=== PATIENT | male | born 1955 | race Two or more races ===

== ENCOUNTER 2021-04-10 03:32 | Inpatient (IN) | payer OTHER, MEDICAID ==
[~2021-04-10] VITALS: Ht 188 cm; Wt 91.6 kg
[2021-04-10] MEDS ORDERED: KETOROLAC TROMETH 30 MG/ML 1ML VIAL IV ONE (04:00)
[2021-04-10] MEDS ORDERED: fentaNYL CITRATE 100 MCG/2 ML VL IV ONE (04:00)
[2021-04-10 05:55] LABS: Basophils # (auto) 0 10 ^3/uL (0-0.2); Eosinophils # (auto) 0 10 ^3/uL (0-0.8); Eosinophils % (auto) 0.1 % (0.0-7.0); Hematocrit 43.7 % (41.0-53.0); Monocytes # (auto) 0.7 10 ^3/uL (0-1.3)
[2021-04-10 05:58] LABS: Basophils % (auto) 0.2 % (0.0-2.0); Hemoglobin 15.3 g/dL (13.5-17.5); Lymphocytes % (auto) 7.6 % (10.0-50.0); Mean Corpuscular Hemoglobin 35.8 pg (28.0-32.0); Mean Corpuscular Volume 102.2 fL (80.0-100.0); Monocytes % (auto) 5.2 % (0.0-12.0); Neutrophils # (auto) 11.8 10 ^3/uL (1.6-8.6); Neutrophils % (auto) 86.9 % (37.0-80.0); Nucleated Red Blood Cells % 0.2 %; Red Blood Cells 4.27 10^6/uL (4.5-5.90); Red Cell Distribution Width 13.4 % (11.8-14.3); White Blood Cell 13.6 10^3/uL (4.4-10.8)
[2021-04-10 06:13] LABS: Albumin 3.4 g/dL (3.4-5.0); BUN/Creatinine Ratio 16.2; Calcium 9.1 mg/dL (8.5-10.1)
[2021-04-10 06:22] LABS: Bilirubin, Total 1.1 mg/dL (0.2-1.0); Total Protein 7.3 g/dL (6.4-8.2)
[2021-04-10] MEDS ORDERED: ONDANSETRON HCL 4 MG/2 ML VIAL IV ONE (06:45)
[2021-04-10] MEDS ORDERED: ACETAMINOPHEN 325 MG TAB PO PRN ×2 (07:15)
[2021-04-10] MEDS ORDERED: TEMAZEPAM 15 MG CAP PO PRN (07:15)
[2021-04-10] MEDS ORDERED: MORPHINE SULFATE INJECTION 2 MG/ML SYRG IV PRN (07:15)
[2021-04-10] MEDS ORDERED: NITROGLYCERIN 0.4 MG SL TAB SL PRN (07:15)
[2021-04-10] MEDS: POTASSIUM CHL 20MEQ/100ML 100 ML IV SCH ×2 (08:03→10:32)
[2021-04-10] MEDS: SOD CHL 0.45% 1,000 ML IV SCH (08:03)
[2021-04-10] MEDS: cefTRIAXone 1GM/50ML D5W 50 ML IV SCH (09:30)
[2021-04-10] MEDS: FAMOTIDINE (10MG/ML) 2ML VL IV SCH (09:44)
[2021-04-10] MEDS: ONDANSETRON HCL 4 MG/2 ML VIAL IV PRN (09:45)
[2021-04-10] MEDS: MORPHINE SULFATE 4 MG/ML SYR/VIAL IV PRN ×3 (09:45→21:15)
[2021-04-10] MEDS: HEPARIN SODIUM (PORCINE) 5000 UNITS/ML 1ML VIAL SC SCH ×2 (10:07→21:17)
[2021-04-10] MEDS ORDERED: ATO40T PO (11:56)
[2021-04-10] MEDS ORDERED: ASPI-543 PO (11:56)
[2021-04-10 13:00] VITALS: BP 151/89
[2021-04-10] MEDS: metroNIDAZOLE 500MG/100ML 100 ML IV SCH ×2 (13:38→21:15)
[2021-04-10 16:35] VITALS: BP 136/85
[2021-04-10] MEDS ORDERED: CLINIMIX PER PHARMACY 0 ML IV SCH (16:45)
[2021-04-10] MEDS: FOLIC ACID 1 MG TAB PO SCH (17:14)
[2021-04-10] MEDS: THIAMINE HCL 100 MG TAB PO SCH (17:14)
[2021-04-10] MEDS ORDERED: AMINO ACID INFUSION IN D10W 1,000 ML IV ONE (20:00)
[2021-04-10 22:00] VITALS: BP 158/90
[2021-04-10] MEDS: InsuLIN REG 1unit/0.01ml Soln (100units/ml) SC SCH (23:39)
[2021-04-10] MEDS: ACCU-CHEK COMFORT CURVE STRIP VI SCH (23:40)
[2021-04-11] MEDS ORDERED: DEXTROSE (50%) 50ML SYRG IV SCH
[2021-04-11] MEDS: SOD CHL 0.45% 1,000 ML IV SCH ×2 (03:50→09:41)
[2021-04-11] MEDS: MORPHINE SULFATE 4 MG/ML SYR/VIAL IV PRN ×3 (04:25→21:10)
[2021-04-11] MEDS: ONDANSETRON HCL 4 MG/2 ML VIAL IV PRN (04:26)
[2021-04-11 05:00] VITALS: BP 120/64
[2021-04-11] MEDS: InsuLIN REG 1unit/0.01ml Soln (100units/ml) SC SCH ×3 (05:44→18:00)
[2021-04-11] MEDS: ACCU-CHEK COMFORT CURVE STRIP VI SCH ×3 (05:44→18:11)
[2021-04-11] MEDS: metroNIDAZOLE 500MG/100ML 100 ML IV SCH ×3 (05:44→21:10)
[2021-04-11 05:53] LABS: Basophils # (auto) 0 10 ^3/uL (0-0.2); Basophils % (auto) 0.3 % (0.0-2.0); Eosinophils # (auto) 0.1 10 ^3/uL (0-0.8); Lymphocytes # (auto) 1.4 10 ^3/uL (0.4-5.4); Monocytes # (auto) 0.9 10 ^3/uL (0-1.3); Neutrophils # (auto) 8.1 10 ^3/uL (1.6-8.6); White Blood Cell 10.5 10^3/uL (4.4-10.8)
[2021-04-11 05:55] LABS: Eosinophils % (auto) 0.9 % (0.0-7.0); Hematocrit 40.4 % (41.0-53.0); Hemoglobin 14.8 g/dL (13.5-17.5); Mean Corpuscular Hemoglobin 36.6 pg (28.0-32.0); Mean Corpuscular Volume 99.8 fL (80.0-100.0); Monocytes % (auto) 8.2 % (0.0-12.0); Neutrophils % (auto) 77.6 % (37.0-80.0); Red Blood Cells 4.04 10^6/uL (4.5-5.90); Red Cell Distribution Width 13.3 % (11.8-14.3)
[2021-04-11 05:57] LABS: Mean Corpuscular Hgb Conc. 36.7 g/dL (32.0-36.0)
[2021-04-11 06:13] LABS: Potassium 3.1 mmol/L (3.5-5.1)
[2021-04-11 06:30] LABS: Albumin 3.2 g/dL (3.4-5.0); Bilirubin, Total 1.6 mg/dL (0.2-1.0); Calcium 7.8 mg/dL (8.5-10.1); Magnesium 1.7 mg/dL (1.6-2.6); Phosphorus 2.3 mg/dL (2.5-4.90); Pre Albumin 19.2 mg/dL (20.0-40.0); Total Protein 6.6 g/dL (6.4-8.2)
[2021-04-11 09:00] VITALS: BP 119/78
[2021-04-11] MEDS ORDERED: CALCIUM GLUC 1,000mg/50ml-NS 50 ML IV ONE (09:00)
[2021-04-11] MEDS: FOLIC ACID 1 MG TAB PO SCH (09:27)
[2021-04-11] MEDS: cefTRIAXone 1GM/50ML D5W 50 ML IV SCH (09:27)
[2021-04-11] MEDS: THIAMINE HCL 100 MG TAB PO SCH (09:27)
[2021-04-11] MEDS: FAMOTIDINE (10MG/ML) 2ML VL IV SCH (09:27)
[2021-04-11] MEDS: HEPARIN SODIUM (PORCINE) 5000 UNITS/ML 1ML VIAL SC SCH ×2 (09:40→21:21)
[2021-04-11] MEDS ORDERED: POTASSIUM PHOSPHATE 44 MEQ in D5W 5% 250 ML IV ONE (10:00)
[2021-04-11] MEDS: LACTATED RINGER'S 1,000 ML IV SCH ×2 (12:46→20:15)
[2021-04-11 13:00] VITALS: BP 108/74
[2021-04-11] MEDS: MAGNESIUM SULFATE 1GM/100ML 100 ML IV SCH ×2 (13:52→17:16)
[2021-04-11 14:16] LABS: Urine Bacteria NONE SEEN /hpf (None Seen); Urine Blood Negative /uL (Negative); Urine Mucus FEW (None Seen); Urine Specific Gravity 1.025 (1.001-1.035); Urine WBC 1 /hpf (0 - 3)
[2021-04-11 14:30] LABS: Alcohol, Urine < 3.0 mg/dL (0-10); Amphetamine Screen, Urine NEGATIVE (NEGATIVE); Barbiturate Scree,Urine NEGATIVE (NEGATIVE); Benzodiazephine Screen, Urine NEGATIVE (NEGATIVE); Cannabinoid Screen, Urine NEGATIVE (NEGATIVE); Cocaine Screen, Urine NEGATIVE (NEGATIVE); Opiate Scree,Urine POSITIVE (NEGATIVE); Phencyclidine Screen, Urine NEGATIVE (NEGATIVE)
[2021-04-11] MEDS ORDERED: POTASSIUM CHLORIDE 40 MEQ, LIDOCAINE 1% (LOCAL ANESTH.) 4 ML in SODIUM CHL 0.9% 250 ML IV ONE (15:00)
[2021-04-11 17:33] VITALS: BP 137/103
[2021-04-11] MEDS ORDERED: SODIUM PHOSPHATES 24 MEQ in SODIUM CHL 0.9% 100 ML IV ONE (19:00)
[2021-04-11] MEDS ORDERED: AMINO ACID INFUSION IN D10W 1,000 ML IV NR (20:00)
[2021-04-12] MEDS: LACTATED RINGER'S 1,000 ML IV SCH ×3 (04:15→20:15)
[2021-04-12] MEDS: ACCU-CHEK COMFORT CURVE STRIP VI SCH ×4 (04:35→18:14)
[2021-04-12 05:05] VITALS: BP 122/76
[2021-04-12] MEDS: metroNIDAZOLE 500MG/100ML 100 ML IV SCH ×3 (05:49→22:19)
[2021-04-12] MEDS: InsuLIN REG 1unit/0.01ml Soln (100units/ml) SC SCH ×4 (06:00→18:00)
[2021-04-12] MEDS: MORPHINE SULFATE 4 MG/ML SYR/VIAL IV PRN ×2 (06:01→22:19)
[2021-04-12] MEDS: ONDANSETRON HCL 4 MG/2 ML VIAL IV PRN ×2 (06:01→22:19)
[2021-04-12 06:52] LABS: Potassium 3.2 mmol/L (3.5-5.1)
[2021-04-12 07:57] LABS: BUN/Creatinine Ratio 16.9; Bilirubin, Total 1.6 mg/dL (0.2-1.0); Total Protein 6.5 g/dL (6.4-8.2)
[2021-04-12 09:00] VITALS: BP 135/80
[2021-04-12] MEDS: FAMOTIDINE (10MG/ML) 2ML VL IV SCH ×2 (09:32→22:19)
[2021-04-12] MEDS: FOLIC ACID 1 MG TAB PO SCH (09:32)
[2021-04-12] MEDS: cefTRIAXone 1GM/50ML D5W 50 ML IV SCH (09:32)
[2021-04-12] MEDS: THIAMINE HCL 100 MG TAB PO SCH (09:32)
[2021-04-12] MEDS: HEPARIN SODIUM (PORCINE) 5000 UNITS/ML 1ML VIAL SC SCH ×2 (09:33→22:20)
[2021-04-12 10:38] LABS: Calcium 8.2 mg/dL (8.5-10.1); Magnesium 2.1 mg/dL (1.6-2.6)
[2021-04-12 10:40] LABS: Phosphorus 2.2 mg/dL (2.5-4.90)
[2021-04-12] MEDS ORDERED: POTASSIUM CHL 20 Meq TABLET PO ONE (11:45)
[2021-04-12] MEDS ORDERED: POTASSIUM PHOSPHATE 22 MEQ in SODIUM CHL 0.9% 100 ML IV ONE (11:45)
[2021-04-12] MEDS ORDERED: POTASSIUM CHL 20MEQ/100ML 100 ML IV ONE (12:30)
[2021-04-12] MEDS ORDERED: POTASSIUM PHOSPHATE 44 MEQ in D5W 5% 250 ML IV ONE (12:30)
[2021-04-12 13:00] VITALS: BP 119/57
[2021-04-12 17:00] VITALS: BP 147/67
[2021-04-12 17:01] VITALS: BP 147/67
[2021-04-12] MEDS ORDERED: AMINO ACID INFUSION IN D10W 1,000 ML IV NR (20:00)
[2021-04-12 22:00] VITALS: BP 136/90
[2021-04-13] MEDS: ACCU-CHEK COMFORT CURVE STRIP VI SCH ×3 (00:05→11:57)
[2021-04-13 05:00] VITALS: BP 157/100
[2021-04-13] MEDS: LACTATED RINGER'S 1,000 ML IV SCH (05:30)
[2021-04-13] MEDS: metroNIDAZOLE 500MG/100ML 100 ML IV SCH ×2 (05:31→13:49)
[2021-04-13] MEDS: InsuLIN REG 1unit/0.01ml Soln (100units/ml) SC SCH ×3 (05:31→11:57)
[2021-04-13 06:16] LABS: Basophils # (auto) 0 10 ^3/uL (0-0.2); Basophils % (auto) 0.4 % (0.0-2.0); Eosinophils # (auto) 0.2 10 ^3/uL (0-0.8); Hematocrit 41.1 % (41.0-53.0); Hemoglobin 14.8 g/dL (13.5-17.5); Lymphocytes # (auto) 1.7 10 ^3/uL (0.4-5.4); Lymphocytes % (auto) 17.7 % (10.0-50.0); Mean Corpuscular Hemoglobin 36.2 pg (28.0-32.0); Mean Corpuscular Volume 100.6 fL (80.0-100.0); Monocytes # (auto) 1.3 10 ^3/uL (0-1.3); Monocytes % (auto) 13.5 % (0.0-12.0); Neutrophils # (auto) 6.3 10 ^3/uL (1.6-8.6); Neutrophils % (auto) 66.4 % (37.0-80.0); Nucleated Red Blood Cells % 0.1 %; Red Blood Cells 4.09 10^6/uL (4.5-5.90); White Blood Cell 9.6 10^3/uL (4.4-10.8)
[2021-04-13 06:36] LABS: Magnesium 2.1 mg/dL (1.6-2.6); Potassium 3.8 mmol/L (3.5-5.1)
[2021-04-13 06:43] LABS: Albumin 3.1 g/dL (3.4-5.0); Bilirubin, Total 1.2 mg/dL (0.2-1.0); Calcium 8.7 mg/dL (8.5-10.1); Phosphorus 1.8 mg/dL (2.5-4.90)
[2021-04-13 08:45] VITALS: BP 137/88
[2021-04-13] MEDS: FOLIC ACID 1 MG TAB PO SCH (09:14)
[2021-04-13] MEDS: THIAMINE HCL 100 MG TAB PO SCH (09:15)
[2021-04-13] MEDS ORDERED: SODIUM PHOSPHATES 40 MEQ in D5W 5% 250 ML IV ONE (09:15)
[2021-04-13] MEDS: FAMOTIDINE (10MG/ML) 2ML VL IV SCH (09:15)
[2021-04-13] MEDS: HEPARIN SODIUM (PORCINE) 5000 UNITS/ML 1ML VIAL SC SCH (09:16)
[2021-04-13] MEDS: cefTRIAXone 1GM/50ML D5W 50 ML IV SCH (09:33)
[2021-04-13 13:00] VITALS: BP 124/76
[2021-04-13] MEDS ORDERED: LACTATED RINGER'S 1,000 ML IV SCH (14:00)
[2021-04-13 16:37] VITALS: BP 124/76
[2021-04-13 17:31] VITALS: BP 135/72
== END 2021-04-13 19:01 | disposition home or self-care (01) | DRG 439 ==
LOC: EDBD 03:32 → ER 03:32 → TELE 07:06 → TELE-WESTW 10:55
PROVIDERS: ADMIT Nurse Practitioner Family; ATTEND Internal Medicine
DX: K85.20 Alcohol induced acute pancreatitis without necrosis or infection (principal); J98.11 Atelectasis; R65.10 Systemic inflammatory response syndrome (SIRS) of non-infectious origin without acute organ dysfunction; Z20.822 Contact with and (suspected) exposure to COVID-19; K40.90 Unilateral inguinal hernia, without obstruction or gangrene, not specified as recurrent; K76.0 Fatty (change of) liver, not elsewhere classified; I10 Essential (primary) hypertension; E87.6 Hypokalemia; F10.10 Alcohol abuse, uncomplicated; M51.37 Other intervertebral disc degeneration, lumbosacral region; G89.29 Other chronic pain; J45.909 Unspecified asthma, uncomplicated; R16.0 Hepatomegaly, not elsewhere classified; M89.9 Disorder of bone, unspecified; M19.90 Unspecified osteoarthritis, unspecified site; Y90.9 Presence of alcohol in blood, level not specified; Z71.41 Alcohol abuse counseling and surveillance of alcoholic; Z79.899 Other long term (current) drug therapy
CPT/HCPCS: 36415; 36600; 71045; 74176; 76705; 80053; 80307; 80320; 81001; 82040; 82150; 82310; 82805; 82962; 83036; 83690; 83735; 84100; 84478; 85025; 85049; 87426; 93005; 96361; 96365; 96375; G0378; J0696; J1885; J2001; J2405; J3480; J3490; J7060